=== PATIENT | male | born 1955 | race Caucasian/White ===

== ENCOUNTER 2018-09-08 12:13 | Observation (INO) | payer BC, OTHER ==
[2018-09-08 12:55] LABS: Absolute Lymphocytes (CBC) 0.3 K/uL (0.7-4.9); Absolute Monocytes 0.2 K/uL (0.1-1.3); Absolute Neutrophil 7.3 K/uL (1.8-8.0); Basophils % 0.3 % (0-1.3); Eosinophils % 0.4 % (0-4.4); Hematocrit 53.2 % (39.6-49.0); Lymphocytes % 4.1 % (15.3-44.8); Monocytes % 3.2 % (3.3-12.3); RBC Red Blood Cell Count 5.86 M/uL (4.33-5.43)
[2018-09-08] MEDS ORDERED: ASPIRIN 81 MG CHEWABLE TABLET ONE (12:57)
--- NOTE | 2018-09-08 13:02 | RAD REPORT ---
EXAM DESCRIPTION: Trudy Single View09/08/2018 12:54 pm CLINICAL HISTORY: Chest pain COMPARISON: none FINDINGS: The lungs appear clear of acute infiltrate. The heart is normal size IMPRESSION: No acute abnormalities displayed
[2018-09-08 13:11] LABS: ALT/SGPT 33 U/L (12-78); AST/SGOT 21 U/L (15-37); Albumin 4.2 g/dL (3.4-5.0); Alkaline Phosphatase 73 U/L (45-117); BUN Blood Urea Nitrogen 16 mg/dL (7-18); Bicarbonate 28 mmol/L (21-32); Bilirubin Direct 0.2 mg/dL (0-0.2); Bilirubin Total 0.8 mg/dL (0.2-1.0); Glucose Level 169 mg/dL (74-106); NT PRO-BNP 52 pg/mL (<125); Protein, Total 7.4 g/dL (6.4-8.2); Sodium Level 143 mmol/L (136-145); Troponin (Emerg Dept Use Only) < 0.02 ng/mL (0.0-0.045)
[2018-09-08 13:51] LABS: Blood Morphology Comment NOT SEEN (NOT SEEN); Platelet Estimate ADEQ; Urine White Blood Cell Casts OK
--- NOTE | 2018-09-08 13:52 | ER ---
Nurse's Notes [facility] Name: Satinder Duckworth Age: 63 yrs Sex: Male : 1955 Arrival Date: 09/08/2018 Time: 12:14 Bed 16 Private MD: None, None Diagnosis: Chest pain, unspecified Presentation: 09/08 12:17 Presenting complaint: Substernal chest paint, SOB, and nausea that woke him sleep last hb night. Pain was unrelieved by Tylenol and omeprazole. Transition of care: patient was not received from another setting of care. Onset of symptoms was September 08, 2018. Risk Assessment: Do you want to hurt yourself or someone else? Patient reports no desire to harm self or others. Care prior to arrival: None. 12:17 Method Of Arrival: Ambulatory 12:17 Acuity: LARISA 3 hb 13:52 Initial Sepsis Screen: Does the patient meet any 2 criteria? No. Patient's initial ph sepsis screen is negative. Does the patient have a suspected source of infection? No. Patient's initial sepsis screen is negative. Historical: - Allergies: 12:20 No Known Allergies; hb - Home Meds: 12:20 None [Active]; hb - PMHx: 12:20 None; hb - PSHx: 12:20 Knee - LEFT; hb - Immunization history:: Adult Immunizations up to date. - Social history:: Smoking status: Patient/guardian denies using tobacco. - Ebola Screening: : No symptoms or risks identified at this time. - Family history:: not pertinent. - Hospitalizations: : No recent hospitalization is reported. Screenin:50 Abuse screen: Denies threats or abuse. Denies injuries from another. Nutritional ph screening: No deficits noted. Tuberculosis screening: No symptoms or risk factors identified. Fall Risk None identified. Assessment: 12:40 General: Appears in no apparent distress. comfortable, well groomed, Behavior is calm, ph cooperative, appropriate for age, Denies fever, feeling ill. Pain: Complains of pain in mid-sternal area Pain does not radiate. Quality of pain is described as sharp, Pain began 1 day ago. Aggravated by increased activity. Neuro: Level of Consciousness is awake, alert, obeys commands, Oriented to person, place, time, situation. Cardiovascular: Reports chest pain, nausea, shortness of breath, Denies palpitations, vomiting, Capillary refill < 3 seconds in bilateral fingers Patient's skin is warm and dry. Rhythm is sinus tachycardia Chest pain quality is sharp, is located in substernal area began 1 day ago is aggravated by activity. Respiratory: Reports shortness of breath Airway is patent Respiratory effort is even, unlabored, Respiratory pattern is regular, symmetrical, Breath sounds are clear bilaterally. GI: Patient currently denies abdominal pain, diarrhea, nausea, vomiting. Derm: Skin is intact, is healthy with good turgor, Skin is pink, warm \T\ dry. 13:49 Reassessment: Patient appears in no apparent distress at this time. Patient and/or ph family updated on plan of care and expected duration. Pain level reassessed. Patient is alert, oriented x 3, equal unlabored respirations, skin warm/dry/pink. Pt resting quietly, awaiting lab and radiology results. 15:00 Reassessment: Patient appears in no apparent distress at this time. Patient and/or ph family updated on plan of care and expected duration. Pain level reassessed. Patient is alert, oriented x 3, equal unlabored respirations, skin warm/dry/pink. Pt rates chest pain 1/10 but is c/o headache behind sowmya eyes 5/10 and nausea, denies dizziness or weakness, VSS at this time, ERP notified or pain and nausea, see MAR. 16:20 Reassessment: Patient appears in no apparent distress at this time. Patient and/or ph family updated on plan of care and expected duration. Pain level reassessed. Patient is alert, oriented x 3, equal unlabored respirations, skin warm/dry/pink. Pt reports that nausea and headache have improved, report called to [facility], pt waiting to be taken to 4th floor by validation technician. Vital Signs: 12:18 BP 179 / 119; Pulse 109; Resp 18; Temp 98.3; Pulse Ox 100% on R/A; Pain 2/10; hb 13:49 BP 156 / 103; Pulse 97; Resp 14; Pulse Ox 97% on R/A; Pain 2/10; ph 14:30 BP 151 / 101; Pulse 97; Resp 18; Pulse Ox 97% on R/A; ph 15:44 BP 146 / 106; Pulse 99; Resp 22; Temp 98.0; Pulse Ox 96% on R/A; ph ED Course: 12:14 Patient arrived in ED. sb2 12:15 None, None is Private Physician. sb2 12:18 Triage completed. hb 12:20 Arm band placed on. hb 12:21 Shane Godinez MD is Attending Physician. rn 12:29 EKG done, by pool technician. reviewed by Shane Godinez MD. at1 12:39 Initial lab(s) drawn, by me, sent to lab. Inserted saline lock: 20 gauge in left dh3 antecubital area, using aseptic technique. Blood collected. 12:43 Sheila Schrader, RN is Primary Nurse. ph 12:43 Radiology exam delayed due to DELAYED DUE TO PREPRESS STRIPPER IN ROOM STARTING IV AND LABS. jb2 12:52 X-ray completed. Portable x-ray completed in exam room. Patient tolerated procedure sw well. 12:55 XRAY Chest (1 view) In Process Unspecified. EDMS 13:50 Patient has correct armband on for positive identification. Placed in gown. Bed in low ph position. Call light in reach. Side rails up X 1. potline monitor on. Pulse ox on. NIBP on. Door closed. Lights dimmed. Warm blanket given. 13:51 Gabbi Perez MD is Hospitalizing Provider. rn 13:51 Patient maintains SpO2 saturation greater than 95% on room air. ph 16:22 No provider procedures requiring assistance completed. Patient admitted, IV remains in ph place. Administered Medications: 07/26 13:15 Drug: Aspirin Chewable Tablet 324 mg Route: PO; ph 09/08 14:00 Follow up: Response: No adverse reaction ph 14:59 Drug: [place] 5 mg-325 mg 1 tabs Route: PO; ph 16:00 Follow up: Response: No adverse reaction; Pain is decreased ph 15:00 Drug: Zofran 4 mg Route: IVP; Site: left antecubital; ph 16:00 Follow up: Response: No adverse reaction; Nausea is decreased ph Outcome: 13:52 Decision to Hospitalize by Provider. rn 16:22 Admitted to Tele accompanied by tech, via wheelchair, room 408, with chart, Report ph called to [facility] 16:22 Condition: stable 16:22 Instructed on discharge instructions, follow up and referral plans. medication usage. 16:25 Patient left the ED. ph Signatures: [facility] jb2 Shane Godinez MD MD rn Richar, Janet, cathode ray tube salvage processor EKG Tat1 Sheila Schrader RN RN Yakelin Ruano Brenda Muro RN RN Afsaneh Mccauley 3 Kelsi Valencia sb2 Corrections: (The following items were deleted from the chart) 12:19 12:17 Presenting complaint: Substernal chest paint, SOB, and nausea that woke him sleep last night. hb
--- NOTE | 2018-09-08 13:53 | EDPHYS ---
Physician Documentation [facility] Name: Satinder Duckworth Age: 63 yrs Sex: Male : 1955 Arrival Date: 09/08/2018 Time: 12:14 Bed 16 Private MD: None, None ED Physician Shane Godinez HPI: 09/08 13:46 This 63 yrs old Male presents to ER via Ambulatory with complaints of Chest rn Pain > 30 y/o. 13:46 The patient or guardian reports chest pain that is located primarily in the substernal rn area. 13:46 Onset: this morning. The pain does not radiate. Associated signs and symptoms: rn Pertinent negatives: abdominal pain, diaphoresis, syncope. The chest pain is described as sharp. Duration: The patient or guardian reports a single episode, that is still ongoing. Severity of pain: At its worst the pain was moderate in the emergency department the pain has improved. The patient has not experienced similar symptoms in the past. The patient has not recently seen a physician. Reports chest pain, intermittent when exercising, today woke him up from sleep, constant, slowly improving. No known heart problems. . Historical: - Allergies: 12:20 No Known Allergies; hb - Home Meds: 12:20 None [Active]; hb - PMHx: 12:20 None; hb - PSHx: 12:20 Knee - LEFT; hb - Immunization history:: Adult Immunizations up to date. - Social history:: Smoking status: Patient/guardian denies using tobacco. - Ebola Screening: : No symptoms or risks identified at this time. - Family history:: not pertinent. - Hospitalizations: : No recent hospitalization is reported. ROS: 13:46 Constitutional: Negative for fever, chills, and weight loss, Eyes: Negative for injury, rn pain, redness, and discharge, Neck: Negative for injury, pain, and swelling, Cardiovascular: + chest pain Respiratory: Negative for shortness of breath, cough, wheezing, and pleuritic chest pain, Abdomen/GI: Negative for abdominal pain, nausea, vomiting, diarrhea, and constipation, MS/Extremity: Negative for injury and deformity, Skin: Negative for injury, rash, and discoloration, Neuro: Negative for headache, weakness, numbness, tingling, and seizure. Exam: 13:46 Constitutional: This is a well developed, well nourished patient who is awake, alert, rn and in no acute distress. Head/Face: Normocephalic, atraumatic. Eyes: Pupils equal round and reactive to light, extra-ocular motions intact. Lids and lashes normal. Conjunctiva and sclera are non-icteric and not injected. Cornea within normal limits. Periorbital areas with no swelling, redness, or edema. Cardiovascular: Tachycardic, regular, no murmur Respiratory: Lungs have equal breath sounds bilaterally, clear to auscultation and percussion. No rales, rhonchi or wheezes noted. No increased work of breathing, no retractions or nasal flaring. Abdomen/GI: soft, non-tender MS/ Extremity: Pulses equal, no cyanosis. Neurovascular intact. Full, normal range of motion. Equal circumference. Neuro: Awake and alert, GCS 15, oriented to person, place, time, and situation. Cranial nerves II-XII grossly intact. Motor strength 5/5 in all extremities. Sensory grossly intact. Vital Signs: 12:18 BP 179 / 119; Pulse 109; Resp 18; Temp 98.3; Pulse Ox 100% on R/A; Pain 2/10; hb 13:49 BP 156 / 103; Pulse 97; Resp 14; Pulse Ox 97% on R/A; Pain 2/10; ph 14:30 BP 151 / 101; Pulse 97; Resp 18; Pulse Ox 97% on R/A; ph 15:44 BP 146 / 106; Pulse 99; Resp 22; Temp 98.0; Pulse Ox 96% on R/A; ph MDM: 12:21 Patient medically screened. rn 13:46 Differential diagnosis: abnormal EKG, acute myocardial infarction, acute pericarditis, rn anxiety, coronary artery disease chest wall pain, costochondritis, gastroesophageal reflux disease (GERD), pleurisy, pneumothorax, stable angina. The patient was given aspirin in the Emergency Department. Data reviewed: vital signs, nurses notes, lab test result(s), EKG, radiologic studies, plain films, and as a result, I will admit patient. Counseling: I had a detailed discussion with the patient and/or guardian regarding: the historical points, exam findings, and any diagnostic results supporting the discharge/admit diagnosis, lab results, radiology results, the need for further work-up and treatment in the hospital. Admission orders: after a detailed discussion of the patient's condition and case, the admit orders are written by me. ED course: Admitted to Dr. Perez. 09/08 12:30 Order name: Basic Metabolic Panel; Complete Time: 13:12 rn 09/08 12:30 Order name: CBC with Diff; Complete Time: 14:18 rn 09/08 12:30 Order name: LFT's; Complete Time: 13:12 rn 09/08 12:30 Order name: NT PRO-BNP; Complete Time: 13:12 rn 09/08 12:30 Order name: Troponin (emerg Dept Use Only); Complete Time: 13:12 rn 09/08 13:50 Order name: CBC Smear Scan; Complete Time: 14:18 EDMS 09/08 12:30 Order name: XRAY Chest (1 view); Complete Time: 13:12 rn 09/08 12:30 Order name: EKG; Complete Time: 12:31 rn 09/08 12:30 Order name: Cardiac monitoring; Complete Time: 12:46 rn 09/08 12:30 Order name: EKG - Nurse/Tech; Complete Time: 12:46 rn 09/08 14:22 Order name: Echo with Doppler EDHI 09/08 12:30 Order name: IV Saline Lock; Complete Time: 12:46 rn 09/08 12:30 Order name: Labs collected and sent; Complete Time: 12:46 rn 09/08 12:30 Order name: O2 Per Protocol; Complete Time: 12:47 rn 09/08 12:30 Order name: O2 Sat Monitoring; Complete Time: 12:47 rn Administered Medications: 07/26 13:15 Drug: Aspirin Chewable Tablet 324 mg Route: PO; ph 09/08 14:00 Follow up: Response: No adverse reaction ph 14:59 Drug: [place] 5 mg-325 mg 1 tabs Route: PO; ph 16:00 Follow up: Response: No adverse reaction; Pain is decreased ph 15:00 Drug: Zofran 4 mg Route: IVP; Site: left antecubital; ph 16:00 Follow up: Response: No adverse reaction; Nausea is decreased ph Disposition: 09/08/18 13:52 Hospitalization ordered by Gabbi Perez for Observation. Preliminary diagnosis is Chest pain, unspecified. - Bed requested for Telemetry/MedSurg (observation). - Status is Observation. ph - Condition is Stable. - Problem is new. - Symptoms have improved. UTI on Admission? No Signatures: Dispatcher [employer] EDMS Shane Godinez MD MD rn Smirch, Shelby, RN RN Sheila Schrader RN RN Brenda Muro, RN ROBERTO Corrections: (The following items were deleted from the chart) 15:04 13:52 Hospitalization Ordered by Gabbi Perez MD for Observation. Preliminary ss diagnosis is Chest pain, unspecified. Bed requested for Telemetry/MedSurg (observation). Status is Observation. Condition is Stable. Problem is new. Symptoms have improved. UTI on Admission? No. rn 16:25 15:04 09/08/2018 13:52 Hospitalization Ordered by Gabbi Perez MD for Observation. ph Preliminary diagnosis is Chest pain, unspecified. Bed requested for Telemetry/MedSurg (observation). Status is Observation. Condition is Stable. Problem is new. Symptoms have improved. UTI on Admission? No. ss
[2018-09-08] MEDS ORDERED: HYDROCODONE/APAP 5/325 MG TAB ONE (15:05)
[2018-09-08] MEDS ORDERED: ONDANSETRON 4 MG/2 ML VIAL ONE (15:05)
[2018-09-08] MEDS ORDERED: ACETAMINOPHEN 500 MG TAB PO PRN (16:30)
--- NOTE | 2018-09-08 16:45 | EKG ---
Test Date: 2018-09-08 Test Time: 12:25:17 Target Worker: CHAYA MEASUREMENT RESULTS: Intervals: Rate: 100 WI: 158 QRSD: 78 QT: 338 QTc: 436 [place]: P: 48 WI: 158 QRS: 10 T: 44 INTERPRETIVE STATEMENTS: Normal sinus rhythm Normal ECG Compared to ECG 10/01/2003 18:23:00 No significant changes Electronically Signed On 09-08-18 16:44:04 PRESSING MACHINE OPERATOR by Surjit Mcnair
--- NOTE | 2018-09-08 16:46 | ECHO ---
HEIGHT: 5 ft 8 in WEIGHT: 180 lb 0 oz DATE OF STUDY: 09/08/[address]: Gabbi Perez MD 2-DIMENSIONAL: YES M.MODE: YES DOPPLER: YES COLOR FLOW: YES TDS: NO PORTABLE: NO DEFINITY: NO BUBBLE STUDY: NO DIAGNOSIS: CHEST PAIN CARDIAC HISTORY: CATHERIZATION: NO SURGERY: NO PROSTHETIC VALVE: NO PACEMAKER: NO MEASUREMENTS (cm) DIASTOLIC (NORMALS) SYSTOLIC (NORMALS) IVSd 1.2 (0.6-1.2) LA Diam 3.1 (1.9-4.0) LVEF 70% LVIDd 3.2 (3.5-5.7) LVIDs 1.9 (2.0-3.5) %FS 39% LVPWd 1.3 (0.6-1.2) Ao Diam 3.3 (2.0-3.7) 2 DIMENSIONAL ASSESSMENT: RIGHT ATRIUM: NORMAL LEFT ATRIUM: NORMAL RIGHT VENTRICLE: NORMAL LEFT VENTRICLE: LEFT VENTRICULAR HYPERTROPHY TRICUSPID VALVE: NORMAL MITRAL VALVE: NORMAL PULMONIC VALVE: NORMAL AORTIC VALVE: MILD SCLEROSIS PERICARDIAL EFFUSION: NONE AORTIC ROOT: NORMAL LEFT VENTRICULAR WALL MOTION: NORMAL. DOPPLER/COLOR FLOW: IMPAIRED LEFT VENTRICULAR RELAXATION. NO AORTIC STENOSIS OR AORTIC REGURGITATION. COMMENTS: NORMAL LEFT VENTRICULAR EJECTION FRACTION. LEFT VENTRICULAR HYPERTROPHY. IMPAIRED LEFT VENTRICULAR RELAXATION. TECHNOLOGIST: JHONY PRESTON
[2018-09-08] MEDS: ENOXAPARIN 40 MG/0.4 ML SQ SCH (16:54)
[2018-09-08] MEDS: NA CHLORIDE 0.9% 1,000 ML IV SCH (16:55)
[2018-09-08] MEDS: ONDANSETRON 4 MG/2 ML VIAL IV PRN (18:18)
[2018-09-08 19:47] LABS: Urine Appearance CLEAR; Urine Blood NEGATIVE (NEG); Urine Color DK YELLOW; Urine Glucose NEGATIVE (NEG); Urine Protein 1+ (NEG); Urine Specific Gravity >=1.030 (1.005-1.030); Urine Urobilinogen 0.2 mg/dL (0.2-1.0); Urine pH 5.5 (5.0-7.0)
[2018-09-08 20:11] LABS: Urine Microscopic Reflex ORDER UMIC
[2018-09-08 20:44] LABS: Urine Bacteria <20 /HPF (NONE SEEN); Urine Bilirubin NEGATIVE (NEG); Urine Culture Reflex Order NOT NEEDED; Urine Mucus 3+ /HPF (NONE SEEN); Urine RBC <5 /HPF (NONE SEEN)
[2018-09-08] MEDS ORDERED: ATORVASTATIN 20 MG TAB PO SCH (21:00)
[2018-09-09] MEDS: NA CHLORIDE 0.9% 1,000 ML IV SCH (02:58)
[2018-09-09] MEDS: ONDANSETRON 4 MG/2 ML VIAL IV PRN (02:58)
[2018-09-09] MEDS ORDERED: PANTOPRAZOLE 40 MG INJ IVP ONE (03:10)
[2018-09-09] MEDS ORDERED: SODIUM CHLORIDE 0.9% 10ML INJ IV PRN (03:10)
[2018-09-09 04:29] LABS: Absolute Lymphocytes (CBC) 0.7 K/uL (0.7-4.9); Absolute Monocytes 0.4 K/uL (0.1-1.3); Absolute Neutrophil 2.8 K/uL (1.8-8.0); Basophils % 0.3 % (0-1.3); Eosinophils % 1.2 % (0-4.4); Hematocrit 47.3 % (39.6-49.0); MPV 9.2 fL (7.6-11.3); Monocytes % 9.9 % (3.3-12.3); RBC Red Blood Cell Count 5.16 M/uL (4.33-5.43)
[2018-09-09 04:45] LABS: Albumin 3.2 g/dL (3.4-5.0); Bilirubin Total 0.6 mg/dL (0.2-1.0); Potassium 3.4 mmol/L (3.5-5.1)
[2018-09-09] MEDS ORDERED: METOPROLOL XL 25 MG TAB PO SCH (06:00)
[2018-09-09] MEDS ORDERED: POTASSIUM CL SA 10 MEQ TAB PO ONE (07:49)
[2018-09-09] MEDS ORDERED: PANTOPRAZOLE 40 MG INJ IVP SCH (09:00)
[2018-09-09] MEDS ORDERED: PNEUMOCOCCAL VACCINE 0.5 ML IMVAC ONE (09:00)
[2018-09-09] MEDS ORDERED: ASPIRIN EC 81 MG TAB PO SCH (09:00)
[2018-09-09] MEDS: ENOXAPARIN 40 MG/0.4 ML SQ SCH (09:00)
[2018-09-09] MEDS ORDERED: REGADENOSON 0.4 MG/5 ML SYR IV ONE (09:30)
--- NOTE | 2018-09-09 10:14 | P.HP ---
Certification for Inpatient Patient admitted to: Observation With expected LOS: <2 Midnights Patient will require the following post-hospital care: None Practitioner: I am a practitioner with admitting privileges, knowledge of patient current condition, hospital course, and medical plan of care. Services: Services provided to patient in accordance with Admission requirements found in Title 42 Section 412.3 of the Code of Federal Regulations Patient History Date of Service: 09/08/18 Reason for admission: Chest pain rule out Acute coronary syndrome History of Present Illness: patient is a 63-year-old gentleman who came to the hospital with chest discomfort. Pain was mainly in the sternal region. There was some radiation to the neck and the left arm. However, the symptoms resolved. Currently he is feeling much better with no new complaints. Patient will be admitted for observation. Will rule him out for acute coronary syndrome. Outpatient workup if symptoms have completely resolved. Allergies No Known Allergies Allergy (Verified 09/08/18 16:16) Home Medications: NK [No Home Meds] 09/08/18 - Past Medical/Surgical History Has patient received pneumonia vaccine in the past: No Diabetic: No Past Medical History: Patient denies medical history -: Left knee surgery - Social History Smoking Status: Never smoker Alcohol use: Yes CD- Drugs: No Caffeine use: Yes Place of Residence: Home Review of Systems 10-point ROS is otherwise unremarkable Physical Examination - Vital Signs Temperature: 98.3 F Blood Pressure: 165/77 Pulse: 75 Respirations: 18 Pulse Ox (%): 94 - Physical Exam General: Alert, In no apparent distress, Oriented x3 HEENT: Atraumatic, PERRLA, Mucous membr. moist/pink, EOMI, Sclerae nonicteric Neck: Supple, 2+ carotid pulse no bruit, No LAD, Without JVD or thyroid abnormality Respiratory: Clear to auscultation bilaterally, Normal air movement Cardiovascular: Regular rate/rhythm, Normal S1 S2, No murmurs Gastrointestinal: Normal bowel sounds, Soft and benign, Non-distended, No tenderness, No rebound, No guarding Musculoskeletal: No clubbing, No swelling, No tenderness Integumentary: No rashes Neurological: Normal gait, Normal speech, Normal strength at 5/5 x4 extr, Normal tone, Normal affect Lymphatics: No axilla or inguinal lymphadenopathy - Studies Laboratory Data (last 24 hrs) 09/08/18 12:39: WBC 7.9, Hgb 18.8 H, Hct 53.2 H, Plt Count 189 09/08/18 12:39: Sodium 143, Potassium 4.0, BUN 16, Creatinine 1.13, Glucose 169 H, Total Bilirubin 0.8, AST 21, ALT 33, Alkaline Phosphatase 73 Assessment & Plan - Problems (Diagnosis) (1) Chest pain, rule out acute myocardial infarction Current Visit: Yes Status: Acute - Plan 1. Serial troponins and EKG 2. Cardiology consultation 3. Echocardiogram and inpatient stress test(pending cardiology evaluation) 4. Anti-platelet therapy, anti coagulation, beta-felice, statin, and O2 as needed 5. IV morphine for pain 6. Nitro p.r.n. Discharge Plan: Home Plan to discharge in: 24 Hours - Advance Directives Does patient have a Living Will: No Does patient have a Durable POA for Healthcare: No - Code Status/Comfort Care Code Status Assessed: Yes Code Status: Full Code Critical Care: No Time Spent Managing PTS Care (In Minutes): 45
--- NOTE | 2018-09-09 11:35 | RAD REPORT ---
EXAM DESCRIPTION: NM - Rest Stress Cardiac Imaging - 09/09/2018 11:26 am CLINICAL HISTORY: Chest pain COMPARISON: None. TECHNIQUE: The patient was administered 10.7 mCi of Tc 99m Sestamibi prior to resting SPECT imaging of the heart. The patient was then administered 30.7 mCi of Tc 99m Sestamibi following exercise or ph armacologic stress. Multiplanar SPECT images were reviewed. FINDINGS: The end diastolic volume is 100 ml, the end systolic volume is 44 ml, and the ejection fra ction is 56 %. No stress-induced ischemia identifiable. Small fixed defect is seen along the inferoseptal wall. Dimi nished activity along the inferior wall at the base noted unchanged between rest and stress imaging. IMPRESSION: No stress-induced ischemia. Ventricular volumes and ejection fraction are normal range. Fixed defects along the inferior wall at the base and midportion of the inferoseptal wall are probabl y attenuation artifacts. Scarring is possible and can be correlated with any EKG abnormality.
--- NOTE | 2018-09-09 15:54 | TREADPHA ---
DX: CHEST PAIN Date of Study: 09/09/2018 Ht: 5 8 Wt: 180 lb 0 oz Consulting Physician: KANWAL MEDICATIONS: TYLENOL, ASPIRIN, LIPITOR, TOPROL XL, LOVENOX, PROTONIX, KLOR-CON. HISTORY: 63 YEAR MALE. COMPLAINTS OF CHEST PAIN. NO MEDICAL HISTORY. PHYSICIAL EXAMINATION: RESTING B.P.: 152/91 RESTING H.R.: 78 RESTING EKG: NORMAL PROTOCOL: LEXISCAN EXERCISE TIME: 3:30 B.P. AT PEAK STRESS: 143/58 IMPRESSION: LEXISCAN INJECTED, CARDIOLITE INJECTED PER PROTOCOL. SEE NUCLEAR MEDICINE REPORT. NO SUPRAVENTRICULAR TACHYCARDIA. NO VENTRICULAR TACHYCARDIA. NO PREMATURE VENTRICULAR COMPLEXS. DENIED CHEST PAIN. NON-DIAGNOSTIC ELECTROCARDIOGRAM WITH LEXISCAN STRESS.
--- NOTE | 2018-09-09 16:25 | P.SSS ---
Patient History Date of Service: 09/09/18 Reason for admission: Chest pain rule out Acute coronary syndrome History of Present Illness: patient is a 63-year-old gentleman who came to the hospital with chest discomfort. Pain was mainly in the sternal region. There was some radiation to the neck and the left arm. However, the symptoms resolved. Currently he is feeling much better with no new complaints. Patient will be admitted for observation. Will rule him out for acute coronary syndrome. Outpatient workup if symptoms have completely resolved. Allergies No Known Allergies Allergy (Verified 09/08/18 16:16) Home Medications: NK [No Home Meds] 09/08/18 - Past Medical/Surgical History Has patient received pneumonia vaccine in the past: No Diabetic: No -: Left knee surgery - Social History Smoking Status: Never smoker Alcohol use: Yes CD- Drugs: No Caffeine use: Yes Place of Residence: Home Review of Systems 10-point ROS is otherwise unremarkable Physical Examination - Vital Signs Temperature: 98.8 F Blood Pressure: 158/79 Pulse: 83 Respirations: 18 Pulse Ox (%): 95 - Physical Exam General: Alert, In no apparent distress HEENT: Atraumatic, PERRLA, Mucous membr. moist/pink, EOMI, Sclerae nonicteric Neck: Supple, 2+ carotid pulse no bruit, No LAD, Without JVD or thyroid abnormality Respiratory: Clear to auscultation bilaterally, Normal air movement Cardiovascular: Regular rate/rhythm, Normal S1 S2 Gastrointestinal: Normal bowel sounds, No tenderness Musculoskeletal: No tenderness Integumentary: No rashes Neurological: Normal gait, Normal speech, Normal strength at 5/5 x4 extr, Normal tone, Normal affect Lymphatics: No axilla or inguinal lymphadenopathy - Diagnosis (Problem(s)) (1) Chest pain, rule out acute myocardial infarction Onset Date: 09/09/18 Status: Acute Treatment Summary: Overall during the hospital stay patient main stable Patient was initially admitted to the hospital for chest pain ACS rule out. Had echocardiogram and stress test done here in the hospital which was within normal limits. Cardiology then recommended the patient be discharged home under stable condition and have follow up with primary care provider in about 1- 2 days post discharge. Patient demostrated understanding and thus was discharged home under stable condition - Disposition Disposition: ROUTINE DISCHARGE Condition: GOOD Patient Discharge Instructions: Please establish care with PCP in the area. No new medication Diet: Regular Activity: Ad luis
== END 2018-09-09 13:35 | disposition home or self-care (01) ==
LOC: ER 12:13 → ERHOLD 14:17 → 4TH 16:04
PROVIDERS: ADMIT Family Medicine; ATTEND Hospitalist
DX: R07.9 Chest pain, unspecified (principal)
CPT/HCPCS: 36415; 71045; 78452; 80048; 80053; 80061; 80076; 83880; 84484 ×4; 85025 ×2; 93005; 93017; 93306; 96374; 99285; A9500; C9113 ×2; G0378 ×2; J1650; J2405 ×3; J2785; J7030 ×2; 81003; 81015

== ENCOUNTER 2021-04-20 10:41 | Emergency (ER) | payer OTHER ==
[2021-04-20] MEDS ORDERED: FENTANYL CITR 100 MCG/2 ML ONE ×2 (11:46→16:06)
[2021-04-20] MEDS ORDERED: ONDANSETRON 4 MG/2 ML VIAL ONE (11:46)
[2021-04-20 11:54] LABS: Absolute Lymphocytes (CBC) 1.4 K/uL (0.7-4.9); Basophils % 0.2 % (0-1.3); Hematocrit 42.9 % (39.6-49.0); Lymphocytes % 14.7 % (15.3-44.8); MPV 8.5 fL (7.6-11.3); RBC Red Blood Cell Count 4.71 M/uL (4.33-5.43)
[2021-04-20 12:07] LABS: Potassium 4.4 mmol/L (3.5-5.1)
--- NOTE | 2021-04-20 12:36 | RAD REPORT ---
EXAM DESCRIPTION: CT - Head C Spine Cap Wo Con - 04/20/2021 12:05 pm CLINICAL HISTORY: Trauma, head and neck injury. Chest, abdomen and pelvis pain. PAIN COMPARISON: No comparisons TECHNIQUE: CT head without contrast. CT cervical spine without contrast with coronal and sagittal reformatted images. CT chest, abdomen and pelvis without contrast with coronal and sagittal reformatted images of the [facility] ne. All CT scans are performed using dose optimization technique as appropriate and may include automated exposure control or mA/KV adjustment according to patient size. FINDINGS: CT HEAD WITHOUT CONTRAST: No intracranial hemorrhage, hydrocephalus or extra-axial fluid collection. Mild generalized brain atr ophy is present with mild periventricular and deep white matter chronic microvascular ischemic change s. No areas of brain edema or midline shift. The paranasal sinuses and mastoids are clear. The calvarium is intact. CT CERVICAL SPINE WITHOUT CONTRAST: No fracture or subluxation. Moderate lower cervical degenerative change. The prevertebral soft tissue s are normal in thickness. CT CHEST, ABDOMEN, PELVIS WITHOUT CONTRAST: NOTE: Lack of contrast is a significant limitation in the assessment of trauma related findings. Spec ifically, solid organ, vascular and bowel evaluation is significantly limited. The lungs are clear.Moderate hiatal hernia.No pneumothorax or pericardial/pleural fluid. No evidence of intra-abdominal visceral injury, free fluid or free air is seen within the above detai led limitations. No pelvic mass or hematoma. Partially visualized right humerus fracture. IMPRESSION: Right humerus fracture, partially visualized. Otherwise, no acute abnormality is seen.
[2021-04-20] MEDS ORDERED: NA CHLORIDE 0.9% 100 ML ONE (12:47)
[2021-04-20] MEDS ORDERED: PANTOPRAZOLE 40 MG INJ ONE (12:47)
[2021-04-20] MEDS ORDERED: NA CHLORIDE 0.9% 1,000 ML ONE (12:48)
[2021-04-20] MEDS ORDERED: CEFAZOLIN/SWI 1gm 1 GM/10 ML SYR ONE (12:48)
--- NOTE | 2021-04-20 12:55 | RAD REPORT ---
EXAM DESCRIPTION: RAD - Humerus Right - 04/20/2021 12:40 pm CLINICAL HISTORY: DEFORMITY Trauma, pain COMPARISON: None FINDINGS: Right humerus, forearm and elbow - multiple projections are submitted Comminuted fracture is present involving the distal humerus with mild displacement of fracture fragme nts. Moderate soft tissue swelling is seen about the fracture site. No dislocation evident.
--- NOTE | 2021-04-20 13:03 | ER ---
Nurse's Notes [facility] Name: Satinder Duckworth Age: 66 yrs Sex: Male : 1955 Arrival Date: 04/20/2021 Time: 10:44 Bed 15 Private MD: Diagnosis: Fall (on) (from) unspecified stairs and steps-with open - comminuted fracture of distal right humerus Presentation: 04/20 10:45 Chief complaint: EMS states: Pt fell off 12 story roof. landed on R side, full impact es2 on R elbow. denies hitting head. Denies neck, spinal, head pain. Coronavirus screen: Vaccine status: Patient reports receiving the 2nd dose of the covid vaccine. Date January 08, 2021. Ebola Screen: Patient negative for fever greater than or equal to 101.5 degrees Fahrenheit, and additional compatible Ebola Virus Disease symptoms Patient denies exposure to infectious person. Patient denies travel to an Ebola-affected area in the 21 days before illness onset. No symptoms or risks identified at this time. Initial Sepsis Screen: Does the patient meet any 2 criteria? No. Patient's initial sepsis screen is negative. Does the patient have a suspected source of infection? No. Patient's initial sepsis screen is negative. Risk Assessment: Do you want to hurt yourself or someone else? Patient reports no desire to harm self or others. Onset of symptoms was April 20, 2021 at 10:00. 10:45 Method Of Arrival: EMS: [facility] es2 10:45 Acuity: LARISA 2 es2 Triage Assessment: 10:51 General: Appears well developed, well nourished, Behavior is calm, cooperative, es2 appropriate for age. Pain: Complains of pain in right elbow Pain currently is 5 out of 10 on a pain scale. EENT: No signs and/or symptoms were reported regarding the EENT system. Neuro: Level of Consciousness is awake, alert, obeys commands, Oriented to person, place, time, situation, Appropriate for age Speech is normal. Cardiovascular: Capillary refill < 3 seconds Patient's skin is warm and dry. Respiratory: Airway is patent Respiratory effort is even, unlabored, Respiratory pattern is regular, symmetrical. GI: No signs and/or symptoms were reported involving the gastrointestinal system. : No signs and/or symptoms were reported regarding the genitourinary system. Derm: Skin temperature is warm has small lacs/abrasions to knees. Musculoskeletal: Capillary refill < 3 seconds. Injury Description: fall from 12 story roof. Historical: - Allergies: 10:49 No Known Allergies; es2 - Home Meds: 10:49 atenolol 25 mg Oral tab 1 tab once daily [Active]; rosuvastatin 20 mg oral tab 1 tab es2 once daily [Active]; irbesartan 300 mg oral tab 1 tab once daily [Active]; - Immunization history:: Adult Immunizations up to date, Client reports receiving the 2nd dose of the Covid vaccine, Date received: January 08, 2021. - Social history:: Smoking status: Patient/guardian denies using. - Family history:: not pertinent. Screenin:53 Abuse screen: Denies threats or abuse. Denies injuries from another. Nutritional es2 screening: No deficits noted. Tuberculosis screening: No symptoms or risk factors identified. Fall Risk Fall in past 12 months (25 points). Mental Status- Oriented to own ability (0 pts). Assessment: 10:53 Reassessment: Patient and/or family updated on plan of care and expected duration. Pain es2 level reassessed. Patient is alert, oriented x 3, equal unlabored respirations, skin warm/dry/pink. Pain: Complains of pain in R elbow Pain currently is 5 out of 10 on a pain scale. Neuro: Level of Consciousness is awake, alert, obeys commands, Oriented to person, place, time, situation, Appropriate for age Speech is normal. 13:12 Reassessment: Report called to Sylvia Williamson at [place]. es2 Vital Signs: 10:45 BP 129 / 61; Pulse 55; Resp 17; Pulse Ox 94% on R/A; es2 13:11 BP 145 / 72; Resp 20; Pulse Ox 100% on R/A; es2 15:51 BP 139 / 76; Pulse 64; Resp 18; Pulse Ox 100% on R/A; es2 ED Course: 10:44 Patient arrived in ED. es2 10:44 Sindy Carr RN is Primary Nurse. es2 10:47 Saul Lloyd MD is Attending Physician. ma2 10:49 Triage completed. es2 10:53 Arm band placed on. es2 10:53 Patient has correct armband on for positive identification. Call light in reach. Side es2 rails up X2. 11:45 Inserted saline lock: 20 gauge in left antecubital area, using aseptic technique. Blood es2 collected. 12:05 CT Traumagram (Head C Spine CAP wo con) In Process Unspecified. EDMS 12:40 Elbow Right 3 View XRAY In Process Unspecified. EDMS 12:40 Forearm Right XRAY In Process Unspecified. EDMS 12:40 Humerus Right XRAY In Process Unspecified. EDMS 12:48 initiated a transfer with Corrie from the [facility]. eb 12:53 administrative approval given by Corrie Gupta Rn/ Dr. Bairon Rebolledo has accepted the patient eb without conference with Dr. Lloyd/ patient has been accepted to [facility] ER/ report to be called to [phone]. 15:52 No provider procedures requiring assistance completed. Patient transferred, IV remains es2 in place. Administered Medications: 11:41 Drug: Zofran (Ondansetron) 4 mg Route: IVP; Site: left antecubital; es2 11:41 Follow up: Response: No adverse reaction es2 11:41 Drug: fentaNYL (PF) 50 mcg {Note: Rass 0.} Route: IVP; Site: left antecubital; es2 11:41 Follow up: Response: No adverse reaction es2 12:27 Drug: Pantoprazole 40 mg Route: IVP; Site: left antecubital; es2 12:43 Follow up: Response: No adverse reaction es2 12:32 Drug: Ancef (cefazolin) 1 grams Route: IVPB; Site: left antecubital; es2 12:43 Follow up: Response: No adverse reaction es2 13:13 Follow up: IV Status: Completed infusion es2 13:24 Drug: NS 0.9% 1000 ml Route: IV; Rate: 1 bolus; Site: left antecubital; es2 15:51 Follow up: Response: No adverse reaction; IV Status: Completed infusion es2 Outcome: 13:01 ER care complete, transfer ordered by MD. bower 15:53 Transferred by ground EMS to [facility]. es2 15:53 Condition: stable 15:53 Discharge instructions given to EMS. 15:53 Patient left the ED. es2 Signatures: Dispatcher [employer] EDMS Saul Lloyd MD MD ma2 Sindy Azevedo Elizabeth, RN RN es2
--- NOTE | 2021-04-20 13:03 | EDPHYS ---
Physician Documentation [facility] Name: Satinder Duckworth Age: 66 yrs Sex: Male : 1955 Arrival Date: 04/20/2021 Time: 10:44 Bed 15 Private MD: ED Physician Saul Lloyd HPI: 04/20 11:14 This 66 yrs old Male presents to ER via EMS with complaints of right elbow ma2 pain. 11:14 The complaints affect the right bicep, right antecubital area and dorsal aspect of ma2 right forearm. Onset: The symptoms/episode began/occurred suddenly, 1 hour(s) ago. Associated signs and symptoms: Pertinent negatives: erythema, pain, tingling, warmth. Severity of symptoms: At their worst the symptoms were severe, in the emergency department the symptoms are unchanged. The patient has not experienced similar symptoms in the past. Brought in by EMS for mechanical fall from a garage roof that is about 10 feet high, he fell directly on the right side, he has right elbow pain. Historical: - Allergies: 10:49 No Known Allergies; es2 - Home Meds: 10:49 atenolol 25 mg Oral tab 1 tab once daily [Active]; rosuvastatin 20 mg oral tab 1 tab es2 once daily [Active]; irbesartan 300 mg oral tab 1 tab once daily [Active]; - Immunization history:: Adult Immunizations up to date, Client reports receiving the 2nd dose of the Covid vaccine, Date received: January 08, 2021. - Social history:: Smoking status: Patient/guardian denies using. - Family history:: not pertinent. ROS: 11:14 Constitutional: Negative for fever, chills, and weight loss. ma2 11:14 All other systems are negative. Exam: 11:14 Constitutional: This is a well developed, well nourished patient who is awake, alert, ma2 and in no acute distress. Head/Face: Normocephalic, atraumatic. Eyes: Pupils equal round and reactive to light, extra-ocular motions intact. Lids and lashes normal. Conjunctiva and sclera are non-icteric and not injected. Cornea within normal limits. Periorbital areas with no swelling, redness, or edema. ENT: Nares patent. No nasal discharge, no septal abnormalities noted. Tympanic membranes are normal and external auditory canals are clear. Oropharynx with no redness, swelling, or masses, exudates, or evidence of obstruction, uvula midline. Mucous membranes moist. Neck: Trachea midline, no thyromegaly or masses palpated, and no cervical lymphadenopathy. Supple, full range of motion without nuchal rigidity, or vertebral point tenderness. No Meningismus. Chest/axilla: Normal chest wall appearance and motion. Nontender with no deformity. No lesions are appreciated. Cardiovascular: Regular rate and rhythm with a normal S1 and S2. No gallops, murmurs, or rubs. Normal PMI, no JVD. No pulse deficits. Respiratory: Lungs have equal breath sounds bilaterally, clear to auscultation and percussion. No rales, rhonchi or wheezes noted. No increased work of breathing, no retractions or nasal flaring. Abdomen/GI: Soft, non-tender, with normal bowel sounds. No distension or tympany. No guarding or rebound. No evidence of tenderness throughout. Back: No spinal tenderness. No costovertebral tenderness. Full range of motion. Skin: Abrasions to both knees, otherwise joints are warm, dry with normal turgor. Normal color with no rashes, no lesions, and no evidence of cellulitis. MS/ Extremity: Right elbow tenderness, right forearm tenderness, limited range of motion due to pain, all hand movements are intact strength 5 out of 5 , pulses and cap refill within normal limits. Sensation is intact and equal both pulses equal, no cyanosis. Neurovascular intact. Full, normal range of motion. Neuro: Awake and alert, GCS 15, oriented to person, place, time, and situation. Cranial nerves II-XII grossly intact. Motor strength 5/5 in all extremities. Sensory grossly intact. Cerebellar exam normal. Normal gait. Psych: Awake, alert, with orientation to person, place and time. Behavior, mood, and affect are within normal limits. Vital Signs: 10:45 BP 129 / 61; Pulse 55; Resp 17; Pulse Ox 94% on R/A; es2 13:11 BP 145 / 72; Resp 20; Pulse Ox 100% on R/A; es2 15:51 BP 139 / 76; Pulse 64; Resp 18; Pulse Ox 100% on R/A; es2 Procedures: 12:54 Splinting: Splint applied to right arm using jose wrap, Orthoglass splint, sling, ma2 applied by nurse. post reduction film - reveals improved alignment, Examined by me, post splint application: neurovascular intact, 2+ distal pulses palpable, brisk capillary refill noted, Patient tolerated well. MDM: 10:47 Patient medically screened. mi2 11:14 Differential diagnosis: dislocation, closed fracture, contusion, abrasion, tendonitis. [facility] 12:05 ED course: Patient has an open supracondylar right elbow fracture, we paged orthopedic ma2 Dr. Kearns at noon.. 12:09 ED course: discussed with dr. kearns and he advised that he does not do open elbow [facility] fractures. 12:54 Data reviewed: vital signs, nurses notes. Counseling: I had a detailed discussion with maZach the patient and/or guardian regarding: the historical points, exam findings, and any diagnostic results supporting the discharge/admit diagnosis, the presence of at least one elevated blood pressure reading (>120/80) during this emergency department visit, the need for outpatient follow up. ED course: discussed with dr herrmann he also advised that he is not available . ED course: accepted by dr. Rebolledo, . 04/20 11:09 Order name: Basic Metabolic Panel; Complete Time: 12:08 [facility] 04/20 11:09 Order name: CBC with Diff; Complete Time: 12:05 [facility] 04/20 11:09 Order name: Elbow Right 3 View XRAY [facility] 04/20 11:09 Order name: Forearm Right XRAY [facility] 04/20 11:09 Order name: Type And Screen; Complete Time: 12:54 [facility] 04/20 13:35 Order name: ABO/RH no charge [facility] 04/20 11:09 Order name: Humerus Right XRAY; Complete Time: 13:02 [facility] 04/20 11:09 Order name: CT Traumagram (Head C Spine CAP wo con); Complete Time: 12:54 [facility] 04/20 11:09 Order name: Labs collected and sent; Complete Time: 11:44 [facility] 04/20 12:07 Order name: NPO [facility] Administered Medications: 11:41 Drug: Zofran (Ondansetron) 4 mg Route: IVP; Site: left antecubital; es2 11:41 Follow up: Response: No adverse reaction es2 11:41 Drug: fentaNYL (PF) 50 mcg {Note: Rass 0.} Route: IVP; Site: left antecubital; es2 11:41 Follow up: Response: No adverse reaction es2 12:27 Drug: Pantoprazole 40 mg Route: IVP; Site: left antecubital; es2 12:43 Follow up: Response: No adverse reaction es2 12:32 Drug: Ancef (cefazolin) 1 grams Route: IVPB; Site: left antecubital; es2 12:43 Follow up: Response: No adverse reaction es2 13:13 Follow up: IV Status: Completed infusion es2 13:24 Drug: NS 0.9% 1000 ml Route: IV; Rate: 1 bolus; Site: left antecubital; es2 15:51 Follow up: Response: No adverse reaction; IV Status: Completed infusion es2 Disposition Summary: 04/20/21 13:01 Transfer Ordered Transfer Location: [place] [id number] Reason: Higher level of care ma2 Condition: Stable ma2 Problem: new ma2 Symptoms: are unchanged ma2 Accepting Physician: dr. Rebolledo(04/20/21 15:53) es2 Diagnosis - Fall (on) (from) unspecified stairs and steps - with open - comminuted fracture of ma2 distal right humerus Forms: - Medication Reconciliation Form ma2 - SBAR form ma2 Critical care time excluding procedures: 12:54 Critical care time: Bedside Care: 20 minutes, Consultation: 10 minutes, Family [facility] Intervention: 10 minutes. Total time: 40 minutes Signatures: Dispatcher [employer] EDMS Saul Lloyd MD MD ma2 Sindy Carr RN RN es2 Corrections: (The following items were deleted from the chart) 15:53 13:01 dr. Rebolledo ma2 es2
[2021-04-20 16:06] VITALS: O2SAT 100
[2021-04-20 16:07] VITALS: BP 139/76
--- NOTE | 2021-04-23 11:03 | RAD REPORT ---
EXAM DESCRIPTION: RAD - Elbow Right 3 View - 04/20/2021 12:40 pm CLINICAL HISTORY: DEFORMITY Trauma, pain COMPARISON: None FINDINGS: Right humerus, forearm and elbow - multiple projections are submitted Comminuted fracture is present involving the distal humerus with mild displacement of fracture fragme nts. Moderate soft tissue swelling is seen about the fracture site. No dislocation evident.
== END 2021-04-20 15:53 | disposition short-term general hospital (02) ==
LOC: ER 10:41
DX: S42.401B Unspecified fracture of lower end of right humerus, initial encounter for open fracture (principal); W13.2XXA Fall from, out of or through roof, initial encounter; Y93.89 Activity, other specified; Y92.9 Unspecified place or not applicable; Y99.9 Unspecified external cause status
CPT/HCPCS: 96365; 96361; 85025; 80048; 36415; 86900; 86850; 86901; 70450; 71250; 72125; 73080; 73090; 73060; 96375; 99285; C9113; J3010 ×2; J0690; J7030; J2405

== ENCOUNTER 2025-04-17 12:00 | Emergency (ER) | payer OTHER ==
[2025-04-17] MEDS ORDERED: ONDANSETRON 4 MG/2 ML VIAL ONE (12:26)
[2025-04-17] MEDS ORDERED: FAMOTIDINE 20 MG/2 ML VIAL IV ONE (12:27)
[2025-04-17] MEDS ORDERED: NA CHLORIDE 0.9% 1,000 ML ONE (12:27)
--- NOTE | 2025-04-17 12:33 | RAD REPORT ---
EXAM: Chest Single View HISTORY: 70 years Male DYSPNEA COMPARISON: No prior exams FINDINGS: LUNGS/PLEURA: The lungs are clear. No pleural effusions or pneumothorax. No pulmonary edema. CARDIAC/MEDIASTINUM: The cardiac silhouette is within normal limits. UPPER ABDOMEN: No significant abnormality. BONES: No acute abnormality. LINES/TUBES/OTHER: Nerve stimulator overlies the right chest wall. IMPRESSION: No evidence of acute cardiopulmonary disease.
--- NOTE | 2025-04-17 12:35 | RAD REPORT ---
EXAMINATION: Neck Soft Tissue VIEWS: Two views CLINICAL INDICATION: Male, 70 years old. FOREIGN BODY COMPARISON: No prior exams IMPRESSION: No acute soft tissue abnormality identified. No radiopaque foreign body. Cervical spondylosis. Neural stimulator leads overlie the right neck.
[2025-04-17 12:51] LABS: Absolute Lymphocytes (CBC) 1.4 K/uL (0.7-4.9); Hematocrit 50.7 % (39.6-49.0); Hemoglobin 17.9 g/dL (13.6-17.9); MCH 31.5 pg (27.0-35.0); MCHC 35.3 g/dL (32.0-36.0); MCV 89.1 fL (80-100); MPV 7.8 fL (7.6-11.3); Nucleated RBC Absolute Count 0.0 (0-0); Nucleated Red Blood Cells % 0.2 % (0-0); RBC Red Blood Cell Count 5.69 M/uL (4.33-5.43); White Blood Count 5.60 thou/uL (4.3-10.9)
[2025-04-17] MEDS ORDERED: MAGNES/ALUMIN/SIMET 30ML UCUP ONE (12:53)
[2025-04-17] MEDS ORDERED: LIDOCAINE VISCOUS 2% 10ML ORAL SOLN ONE (12:53)
[2025-04-17 13:33] LABS: ALT/SGPT 35.0 U/L (16-61); AST/SGOT 22.0 U/L (15-37); Albumin 3.6 g/dL (3.4-5.0); Albumin/Globulin Ratio 1.2 (1.1-1.8); Alkaline Phosphatase 71.0 U/L (45-117); Anion Gap 7.3 mEq/L (5.0-15.0); BUN Blood Urea Nitrogen 20.0 mg/dL (7-18); Globulin 3.1 g/dL (2.3-3.5); Glucose Level 161.0 mg/dL (74-106); Lipase 81.0 U/L (13-75); Potassium 4.3 mEq/L (3.5-5.1)
--- NOTE | 2025-04-17 14:15 | ER ---
Nurse's Notes [facility] Name: Satinder Duckworth Age: 70 yrs Sex: Male : 1955 Arrival Date: 04/17/2025 Time: 12:00 Bed 11 Private MD: Diagnosis: Pain in throat;Vomiting Presentation: 04/17 12:09 Chief complaint: Patient states: VOMITING TODAY AFTER TAKING VITAMINS. VITAMINS STARTED db "SMOKING" COMING OUT OF NOSE AND INHALED VITAMINS. STARTED VOMITING. APPROXIMATELY 45 MIN AGO. COMPLAINS OF PAIN IN THROAT NOW WITH IRRITATION. Coronavirus screen: Client denies travel out of the [place] in the last 14 days. At this time, the client does not indicate any symptoms associated with coronavirus-19. Ebola Screen: Patient negative for fever greater than or equal to 101.5 degrees Fahrenheit, and additional compatible Ebola Virus Disease symptoms Patient denies exposure to infectious person. Patient denies travel to an Ebola-affected area in the 21 days before illness onset. No symptoms or risks identified at this time. Initial Sepsis Screen: Does the patient meet any 2 criteria? No. Patient's initial sepsis screen is negative. Does the patient have a suspected source of infection? No. Patient's initial sepsis screen is negative. Risk Assessment: Do you want to hurt yourself or someone else? Patient reports no desire to harm self or others. Onset of symptoms was April 17, 2025. 12:09 Method Of Arrival: Ambulatory db 12:09 Acuity: LARISA 3 db Triage Assessment: 12:09 General: Appears in no apparent distress. comfortable, Behavior is calm, cooperative. db Pain: Complains of pain in mouth. Neuro: Level of Consciousness is awake, alert, obeys commands, Oriented to person, place, time, situation. Respiratory: Airway is patent Respiratory effort is even, unlabored, Respiratory pattern is regular, symmetrical. GI: Reports nausea, vomiting. Historical: - Allergies: 12:09 No Known Allergies; db - PMHx: 12:09 Parkinson's disease; db - Immunization history:: Adult Immunizations unknown. - Infectious Disease History:: Denies. - Social history:: Smoking status: Patient denies any tobacco usage or history of. Screenin:30 [facility] ED Fall Risk Assessment (Adult) History of falling in the last 3 months, db including since admission No falls in past 3 months (0 pts) Confusion or Disorientation No (0 pts) Intoxicated or Sedated No (0 pts) Impaired Gait No (0 pts) Mobility Assist Device Used No (0 pt) Altered Elimination No (0 pt) Score/Fall Risk Level 0 - 2 = Low Risk Oriented to surroundings, Maintained a safe environment. Abuse screen: Denies threats or abuse. Denies injuries from another. Nutritional screening: No deficits noted. Tuberculosis screening: No symptoms or risk factors identified. Assessment: 14:30 Reassessment: Patient appears in no apparent distress at this time. Patient and/or db family updated on plan of care and expected duration. Pain level reassessed. Patient is alert, oriented x 3, equal unlabored respirations, skin warm/dry/pink. General: Appears in no apparent distress. comfortable, Behavior is calm, cooperative. Neuro: Level of Consciousness is awake, alert, obeys commands, Oriented to person, place, time, situation. GI: No deficits noted. No signs and/or symptoms were reported involving the gastrointestinal system. Vital Signs: 12:09 BP 154 / 91; Pulse 76; Resp 16; Pulse Ox 95% ; Weight 77.11 kg; Height 5 ft. 8 in. ; db 14:30 BP 150 / 88; Pulse 76; Resp 16; Pulse Ox 95% on R/A; db 12:09 Body Mass Index 25.85 (77.11 kg, 172.72 cm) db ED Course: 12:06 Patient arrived in ED. al6 12:06 Izabella Chamorro [facility]C [facility]. kb 12:06 Shane Godinez MD is Attending Physician. kb 12:09 Arm band placed on Patient placed in an exam room. db 12:12 Triage completed. db 12:31 Chest Single View XRAY In Process Unspecified. EDMS 12:31 XRAY Neck Soft Tissue In Process Unspecified. EDMS 12:42 Initial lab(s) drawn, by me, sent to lab. Inserted saline lock: 20 gauge in right db antecubital area, using aseptic technique. Blood collected. Flushed with 10 mL NS. 12:50 Ashley Allen, RN is Primary Nurse. db 13:05 Lab(s) recollected, by me, sent to lab. db 14:30 Patient has correct armband on for positive identification. Bed in low position. Call db light in reach. Side rails up X 1. Provided Education on: PRESCRIPTIONS AND FOLLOWUP. Warm blanket given. Pillow given. 14:30 No provider procedures requiring assistance completed. IV discontinued, intact, db bleeding controlled, No redness/swelling at site. Administered Medications: 12:42 Drug: Famotidine IVP 20 mg IVP once; dilute with 10 mL 0.9% NaCl; give over 2 minutes db Route: IVP; Site: right antecubital; 14:38 Follow up: Response: No adverse reaction db 12:42 Drug: Ondansetron IVP 4 mg IVP once; over 2 minutes Route: IVP; Site: right antecubital;db 14:38 Follow up: Response: No adverse reaction db 12:42 Drug: NS 0.9% IV 1000 ml IV at 1 bolus Per protocol; to be given as a bolus over 60 db minutes Route: IV; Rate: 1 bolus; Site: right antecubital; 14:37 Follow up: Response: No adverse reaction; IV Status: Completed infusion; IV Intake: db 1000ml 12:55 Drug: GI Cocktail without - (Maalox PO 30 ml, Lidocaine Mucous Membrane 2 % 15 db ml) PO once Route: PO; 14:37 Follow up: Response: No adverse reaction db Medication: 14:30 VIS not applicable for this client. db Intake: 14:37 IV: 1000ml; Total: 1000ml. db Outcome: 14:14 Discharge ordered by . eric 14:30 Discharged to home ambulatory, with family, db 14:30 Condition: stable 14:30 Discharge instructions given to patient, family, Instructed on discharge instructions, follow up and referral plans. Prescriptions given X 1, 14:38 Patient left the ED. db Signatures: Dispatcher [employer] EDMI Izabella Chamorro, NEGRIT[employer] DRAFTER SEISMOGRAPH-Ashley Wilson RN RN Vy Hollingsworth Corrections: (The following items were deleted from the chart) 12:13 12:09 Chief complaint: Patient states: VOMITING TODAY AFTER TAKING VITAMINS. VITAMINS db STARTED "SMOKING" COMING OUT OF NOSE AND INHALED VITAMINS. STARTED VOMITING. APPROXIMATELY 45 MIN AGO db
--- NOTE | 2025-04-17 14:16 | EDPHYS ---
Physician Documentation [facility] Name: Satinder Duckworth Age: 70 yrs Sex: Male : 1955 Arrival Date: 04/17/2025 Time: 12:00 Bed 11 Private MD: ED Physician Shane Godinez HPI: 04/17 14:17 This 70 yrs old Male presents to ER via Ambulatory with complaints of Vomiting. kb 14:17 Patient is a 70-year-old male who presents for vomiting and pain in throat that started kb just prior to arrival. States he was taking for 5 vitamins at the same time and after he swallowed them, a of smoke came out of his nose and then he started having the vomiting and sore throat. States he did take a new vitamin called berberine that was in capsule form so it could have opened and that is what looked like smoke coming out of his nose. Denies any abdominal pain. States prior to taking the vitamins he had no symptoms, felt fine.. Historical: - Allergies: 12:09 No Known Allergies; db - PMHx: 12:09 Parkinson's disease; db - Immunization history:: Adult Immunizations unknown. - Infectious Disease History:: Denies. - Social history:: Smoking status: Patient denies any tobacco usage or history of. ROS: 14:16 Constitutional: As per HPI kb Exam: 14:16 Constitutional: This is a well developed, well nourished patient who is awake, alert, kb and in no acute distress. Head/Face: Normocephalic, atraumatic. ENT: Moist Mucous membranes Cardiovascular: Regular rate Respiratory: Respirations even and unlabored. No increased work of breathing. Talking in full sentences Abdomen/GI: Soft, non-tender. No distention Skin: Warm, dry with normal turgor. Normal color. MS/ Extremity: Pulses equal, no cyanosis. Neurovascular intact. Full, normal range of motion. Neuro: Awake and alert, GCS 15, oriented to person, place, time, and situation. 14:16 ENT: Posterior pharynx: is normal, kb Vital Signs: 12:09 BP 154 / 91; Pulse 76; Resp 16; Pulse Ox 95% ; Weight 77.11 kg; Height 5 ft. 8 in. ; db 14:30 BP 150 / 88; Pulse 76; Resp 16; Pulse Ox 95% on R/A; db 12:09 Body Mass Index 25.85 (77.11 kg, 172.72 cm) db MDM: 12:06 Medical Screening Exam initiated kb 14:16 Differential diagnosis: FB in esophagus, adverse reaction to medication, aspiration. kb Data reviewed: vital signs, nurses notes. Test considered but Not performed: CT: ct abd considered but pt has no abd pain or tenderness. Historians other than the Patient: Spouse/Significant Other: . Counseling: I had a detailed discussion with the patient and/or guardian regarding the historical points, exam findings, and any diagnostic results supporting the discharge/admit diagnosis, lab results, radiology results, the need for outpatient follow up, a family practitioner, to return to the emergency department if symptoms worsen or persist or if there are any questions or concerns that arise at home. ED course: Pt is feeling better after treatment. Will follow up with PCP. Recommended ENT follow up if symptoms persist. 04/17 12:18 Order name: CBC with Diff; Complete Time: 13:39 kb 04/17 12:18 Order name: CMP; Complete Time: 13:39 kb 04/17 12:18 Order name: Lipase; Complete Time: 13:39 kb 04/17 12:18 Order name: Chest Single View XRAY; Complete Time: 12:34 kb 04/17 12:18 Order name: XRAY Neck Soft Tissue; Complete Time: 12:47 kb 04/17 12:18 Order name: IV Saline Lock; Complete Time: 12:51 kb 04/17 12:18 Order name: Labs collected and sent; Complete Time: 12:51 kb 04/17 12:58 Order name: Labs - recollect needed: green; Complete Time: 13:08 bd Administered Medications: 12:42 Drug: Famotidine IVP 20 mg IVP once; dilute with 10 mL 0.9% NaCl; give over 2 minutes db Route: IVP; Site: right antecubital; 14:38 Follow up: Response: No adverse reaction db 12:42 Drug: Ondansetron IVP 4 mg IVP once; over 2 minutes Route: IVP; Site: right antecubital;db 14:38 Follow up: Response: No adverse reaction db 12:42 Drug: NS 0.9% IV 1000 ml IV at 1 bolus Per protocol; to be given as a bolus over 60 db minutes Route: IV; Rate: 1 bolus; Site: right antecubital; 14:37 Follow up: Response: No adverse reaction; IV Status: Completed infusion; IV Intake: db 1000ml 12:55 Drug: GI Cocktail without - (Maalox PO 30 ml, Lidocaine Mucous Membrane 2 % 15 db ml) PO once Route: PO; 14:37 Follow up: Response: No adverse reaction db Disposition: 17:11 Co-signature as Attending Physician, Shane Godinez MD I reviewed the patient's care rn provided by the Advanced Practice Provider and agree with the diagnosis and treatment plan. Disposition Summary: 04/17/25 14:14 Discharge Ordered Notes: Location: Home kb Condition: Stable kb Diagnosis - Pain in throat kb - Vomiting kb Followup: kb - With: Emergency Department - When: As needed - Reason: Worsening of condition Followup: kb - With: Private Physician - When: 2 - 3 days - Reason: Recheck today's complaints, Continuance of care, Re-evaluation by your physician Discharge Instructions: - Discharge Summary Sheet kb - Nausea and Vomiting, Adult, [id number] kb - Sore Throat, [id number] kb Forms: - Medication Reconciliation Form kb - Antibiotic Education kb - Prescription Opioid Use kb - Patient Portal Instructions kb - Leadership Thank You Letter kb Prescriptions: - Zofran 4 mg Oral tablet - take 1 tablet ORAL route every 6 hours As needed; 12 tablet; Refills: 0, kb Product Selection Permitted Signatures: Dispatcher [employer] EDMS Izabella Chamorro, [employer]-Shama Lyle Roman, MD MD rn Benton, Danielle, RN RN db Corrections: (The following items were deleted from the chart) 14:16 14:16 Constitutional: This is a well developed, well nourished patient who is awake, kb alert, and in no acute distress. Head/Face: Normocephalic, atraumatic. ENT: Moist Mucous membranes Cardiovascular: Regular rate Respiratory: Respirations even and unlabored. No increased work of breathing. Talking in full sentences Abdomen/GI: Soft, non-tender. No distention Skin: Warm, dry with normal turgor. Normal color. MS/ Extremity: Pulses equal, no cyanosis. Neurovascular intact. Full, normal range of motion. Neuro: Awake and alert, GCS 15, oriented to person, place, time, and situation. kb
[2025-04-17 15:04] VITALS: O2SAT 95
[2025-04-17 15:05] VITALS: BP 150/88
== END 2025-04-17 14:38 | disposition home or self-care (01) ==
LOC: ER 12:00
DX: R07.0 Pain in throat (principal); R11.10 Vomiting, unspecified
CPT/HCPCS: 96361; 85025; 36415; 83690; 80053; 71045; 70360; 96375; 96374; 99284; J2405; J7030